=== PATIENT | female | born 1930 | race Caucasian/White ===

== ENCOUNTER 2016-07-04 21:41 | Emergency (ER) | payer MEDICARE ==
--- NOTE | 2016-07-04 22:17 | ERNOTE ---
GI Bleeding/Rectal Pain ER Date of Service: 07/04/16 - black stools Presenting Symptoms: other - Paeint reports use of peptobismuth and on iron therapy Immunizations: IMMUNIZATION HX Immunizations Up to Date Yes History of Influenza Vaccine Yes Hx Pneumococcal Vaccination Yes Allergies/Adverse Reactions: Allergies aspirin Adverse Reaction (Mild, Verified 02/13/16 09:08) Nausea can take coated asa meperidine HCl [From Demerol] Adverse Reaction (Mild, Verified 02/13/16 09:08) n/v Home Medications: HOME MEDICATIONS Gabapentin 600 mg PO Q4H 01/25/15 [Last Taken Unknown] traZODone HCL [Desyrel] 50 mg PO HS 01/25/15 [Last Taken Unknown] Calcium Carbonate/Vitamin D3 [Calcium 600 + D Tablet] 1 each PO DAILY 02/06/15 [ Last Taken Unknown] HYDROcodone/ACETAMINOPHEN [[place] 5-325 Tablet] 1 tab PO Q4H PRN 02/06/15 [Last Taken Unknown] Ibuprofen [Motrin] 400 mg PO Q6H PRN 02/06/15 [Last Taken Unknown] Multivit with Calcium,Iron,Min [Women's Daily Formula] 1 each PO DAILY 02/06/15 [Last Taken Unknown] [place]-3 Fatty Acids/Fish Oil [Fish Oil 1,000 mg Capsule] 1 each PO BID 02/06/15 [Last Taken Unknown] Omeprazole 40 mg PO DAILY 02/11/16 [Last Taken Unknown] Propylene Glycol/Peg 400 [Systane 0.3-0.4% Eye Drops] 1 drop OP BID 02/11/16 [ Last Taken Unknown] Zolpidem Tartrate [Ambien] 5 mg PO HS PRN 02/11/16 [Last Taken Unknown] Narrative: Patient presents with black stools x 3 days Date (Duration): 07/02/16 Time (Timing): 08:10 Timing: constant Quality/Severity: Present: mild Nausea/Vomiting: Present: blood Abdominal Pain: Present: none Rectal Bleeding: Present: other - black stool, no redness or clots noted, Prior Treament: Reports: recently seen, other - Under care of cancer specialist , has recent dx of left lung cancer Review of Systems - Review of Systems Constitutional: Present: no symptoms reported EYE: Present: no symptoms reported ENT: Present: no symptoms reported Respiratory: Present: no symptoms reported Cardiology: Present: no symptoms reported Gastrointestinal/Abdominal: Present: nausea - using peptobismuth for nausea , other - noted black stools since , same day she started the peptobismuth for nausea Genitourinary: Present: no symptoms reported Musculoskeletal: Present: no symptoms reported Skin: Present: no symptoms reported Neurological: Present: no symptoms reported Endocrine: Present: no symptoms reported Hematologic/Lymphatic: Present: no symptoms reported Psych: Present: no symptoms reported All Other Systems: All systems neg except as marked - Patient's Past Medical History Patient History - Medical: No pertinent hx Patient History - Cardiac/Respiratory: Bronchitis Patient History - Cancer: Lung, Thyroid Patient History - Surgical Procedures: Back Surgery, Cholecystectomy, T & A Patient History - Other: None - Social History Living Situations: alone Psych History: No pertinent hx Smoking Status: Former smoker Have you smoked in the past 12 months: Yes Do you dip or chew tobacco: No Alcohol Use: none - Immunizations Immunizations Up to Date: Yes Hx Pneumococcal Vaccination: Yes History of Influenza Vaccine: Yes Physical Exam - Physical Exam General Appearance: Present: wd/wn, alert Eye Exam: Normal inspection: bilateral, PERRL: bilateral, EOMI: bilateral Ears, Nose, Throat: Present: normal ENT inspection, normal except -, cerumen impaction - left ear canal partially impacted, tm still appears normal , normal pharynx Neck: Present: normal inspection, nontender Respiratory: Present: no respiratory distress, no accessory muscle use, chest nontender, lungs clear, decreased breath sounds - bilaterally at bases Cardiovascular/Chest: Present: regular rate, rhythm, no murmur Gastrointestinal/Abdominal: Present: normal bowel sounds, nontender, nondistended, soft, no organomegaly Rectal Exam: Present: nontender, normal rectal tone, other - stool color Back Exam: Present: normal inspection, normal range of motion, no CVA tenderness Extremity Exam: Present: normal inspection, normal range of motion, no edema Neurological Exam: Present: alert, oriented, normal mood/affect, no motor/ sensory deficits, other - patient is hard of hearing Skin Exam: Present: normal color, warm/dry Lymphatic Exam: Present: no adenopathy Pelvic Exam: Present: deferred ED Progress - Results and Orders Patient's Lab Results:: I have reviewed the patient's lab results. - Vital Signs Patient's Vital Signs:: I have reviewed the patient's vital signs. Vital Signs: Vital Signs 07/04/16 07/04/16 21:47 22:07 Temperature 36.7 C Pulse Rate 83 77 Respiratory 18 20 Rate Blood Pressure 122/75 168/78 O2 Sat by Pulse 96 94 Oximetry - Progress/Reassessment Chief Complaint: GI Bleed Progress:: Unchanged Plan - Plan Plan: discussed with patient stable for discharge and follow up with her PCP Departure Clinical Impression: GERD without esophagitis Nausea & vomiting Qualifiers: Vomiting type: unspecified Vomiting Intractability: non-intractable Qualified Code(s): R11.2 - Nausea with vomiting, unspecified - Departure Disposition: Home self-care Condition: Good Instructions: Indigestion, [id number] Additional Instructions: YOUR BLOOD WORK TODAY WAS STABLE NO BLOOD WAS DETECTED IN THE STOOL TODAY. CONTINUE TO MONITOR FOR ABDOMINAL PAIN AND OTHER SIGNS OF BLOOD LOSS, FOLLOW UP WITH YOUR DOCTOR Referrals: Tyrell Bryant MD [Primary Care Provider] -
--- OUTSIDE RECORDS SUMMARY | 2016-07-04 22:18 | XMS REPORT | Continuity of Care Document ---
:1930 Author Organization [facility] ([facility]) Address [address] [place] [address] Phone [phone] Care Team Providers Name Role Phone Tyrell Bryant Primary Care Provider [phone] Source Comments This disclosure is being made pursuant to the Care Everywhere program, applicable federal and state laws, and may not contain all informaitonavailable regarding this patient.[facility] ([facility]) Active Allergies and Adverse Reactions Allergen Noted Date Severity Reactions Comments Aspirin 07/28/2012 Nausea & Vomiting Meperidine 07/28/2012 Nausea & Vomiting Current Medications Prescription Sig. Disp. Refills Start Date End Date Status PROPYLENE GLYCOL/PEG 400 Instill onto the Active (SYSTANE OPHTH) eye as needed. CALCIUM PO Take by mouth 2 Active times daily. OMEPRAZOLE PO Take 20 mg by Active mouth daily. DOCOSAHEXANOIC ACID/EPA Take by mouth 2 Active (FISH OIL PO) times daily. VIT A/VIT C/VIT Take by mouth. Active E/ZINC/COPPER (OCUVITE PRESERVISION PO) MULTIVITS,CA,MINERALS/IRON Take by mouth. Active /FA (ONE-A-DAY WOMENS FORMULA PO) gabapentin 600 mg tablet take 1 tablet (600 1 12/04/2015 Active mg) by oral route 6 times per day traZODone 50 mg tablet Take 50 mg by 1 01/01/2016 Active mouth daily. zolpiDEM 5 mg tablet Take 5 mg by mouth 1 02/27/2016 Active at bedtime as needed. 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 Right Eye Left Eye Time To Recurrence: Time To Recurrence: Date VA (D cc) CMT Status Procedure VA (D cc) CMT Status Procedure Cmts 07/28/2012 20/30 20/60 +2 Avastin [id number] 11/24/2012 20/30-1+1 20/60-1 [id number] 03/17/2013 20/25-2 cc 20/80 cc Eylea [id number] 07/20/2013 20/30 cc 20/50 cc Lucentis [id number] Injections locally 05/11/2014 20/30 cc 20/60 +2 cc Lucentis [id number] 10/11/2014 20/30 cc 20/50 cc Eylea [id number] 04/11/2015 20/40-2 cc 20/60-2 cc Eylea [id number] 04/24/2016 20/25 +2 cc Eylea [id number] 20/30 -3 cc Eylea [id number] 05/21/2016 20/25 +3 cc 20/25 -1 cc Eylea [id number] Left eye only this visit Most Recent Encounters Date Type Specialty Providers Description 05/21/2016 Office Visit Ophthalmology - Chief Comp: Patient Specialty Reported Reason For Visit 05/21/2016 Office Visit Ophthalmology - Chris Timmons, Dx: Exudative age- related Specialty macular degeneration of both eyes with active choroidal neovascularization (Primary Dx) 04/24/2016 Office Visit Ophthalmology - Chief Comp: Patient Specialty Reported Reason For Visit 04/24/2016 Office Visit Ophthalmology - Chris Timmons, Dx: CNVM ( choroidal Specialty neovascular membrane), bilateral (Primary Dx) Social History Tobacco Use Types Packs/Day Years Used Date Current Every Day Smoker Cigarettes Smokeless Tobacco: Never Used Tobacco Cessation:Ready to Quit: No; Counseling Given: No Comments:Trying to quit Alcohol Use Drinks/Week oz/Week Comments No Plan of Care Health Maintenance Due Date Last Done Comments Hepatitis B Vaccine (1 of 3 - Primary Series) 1930 Tdap Vaccine 06/24/1943 Lipid Disorder Screening 1948 Td Vaccine 1948 Colonoscopy 1982 Zoster Vaccine 1992 Osteoporosis Screening (DXA Bone Density) 1997 Pneumococcal Vaccine (1 of 2 - PCV13) 1997 Influenza Vaccine: Seasonal (#1) 10/28/2015 Results from Last 3 Months EYE PROC - INTRAVITREAL INJECTION (05/21/2016 4:25 PM)Only the most recent of2 resultswithin the time period is included. Rosalva Valiente MD 05/21/20164:25 PM Retina Injection Procedure Note Surgical Service: Ophthalmology & Visual Sciences Date Performed: 05/21/2016 Performed by: Rosalva Rhoades MD Injection History: Injection and Visual Acuity Log Date Injection OD VA cc VA phcc Injection OS VA cc VA phcc 05/21/201620/25 +3Eylea 20/25 -1 04/24/2016 Eylea 20/25 +2Eylea 20/30 -3 NI 01/09/20162020 -2 20/20 -2 -3 20/25 -3 40-2 20/30 Eylea 20/60-2 20/30-2 NI Eylea 20/50 20/30 +1 05/11/ NI20/60 +2 20/40 12/07/ +1 NI Eylea 20/60 +1 20/30 -2 20/25 Eylea 20/50 20/40 +1 -2Eylea 20/80 NI -1+1 NI Avastin 20/60-1 NI NI Avastin 20/60 +2 NI Intravitreal injection Medication Injected: Intravitreal injection of 2mg Eylea left eye. Pre-procedure Diagnosis:Exudative age-related macular degeneration of both eyes with active choroidal neovascularization Preparation:5% Sterile PVP Antibiotic Drops:Gentamicin 0.3% administered both pre and post-procedure to injected eye/s Anesthesia: Topical Proparacaine 0.5% and Subconjunctival 2% Lidocaine Complications:None Post-injection Exam:VA > or=Hand Motions Procedure Comments: Patient was given endophthalmitis return precautions including pain and decreased vision and was instructed to return to clinic if any concerns. I was present for the entire procedure. Rosalva Rhoades MD Medical Retina Fellow Department of Ophthalmology and Visual Sciences [facility]
[2016-07-04 22:43] LABS: Hematocrit 37.1 % (37.0-47.0); Hemoglobin 12.7 gm/dL (12.5-16.0); Mean Cell Volume 86.5 fl (78-100); Mean Corpuscular Hemoglobin 29.6 pg (27-31); Mean Corpuscular Hgb Conc 34.2 g/dl (32-36); Mean Platelet Volume 8.9 fl (6.0-9.5); Neutrophil # 5.3 K/mm3 (1.3-6.0); Neutrophil % 53.4 % (42-75.0); Platelet Count 230 K/mm3 (150-450); Red Blood Count 4.29 M/mm3 (4.2-5.4); Red Cell Distribution Width 13.7 % (11.5-14.0); White Blood Count 9.9 K/mm3 (4.0-10.5)
[2016-07-04 22:48] LABS: Albumin * 3.2 gm/dl (3.4-5.0); Anion Gap 9.3 mmol/L (6.8-13.8); BUN/Creatinine Ratio 20.3 (9.0-21.6); Bilirubin, Total 0.2 mg/dL (0.0-1.1); Ca. Corrected For Albumin 9.1 mg/dL (8.4-10.2); Calcium * 8.8 mg/dL (7.9-10.9); Carbon Dioxide 29.2 mmol/L (24-32.6); Potassium 3.5 mmol/L (3.4-4.6); Total Protein 6.2 gm/dL (6.2-8.2)
[2016-07-04 23:54] VITALS: BP 117/86
== END 2016-07-04 23:55 | disposition home or self-care (01) ==
LOC: ER 21:41
DX: K21.9 Gastro-esophageal reflux disease without esophagitis (principal); R11.2 Nausea with vomiting, unspecified; Z72.0 Tobacco use; Z85.850 Personal history of malignant neoplasm of thyroid; Z85.118 Personal history of other malignant neoplasm of bronchus and lung

== ENCOUNTER 2016-08-04 07:22 | Day surgery (SDC) | payer MEDICARE ==
--- OUTSIDE RECORDS SUMMARY | 2016-08-04 07:26 | XMS REPORT | Continuity of Care Document ---
:1930 Author Organization [facility] ([facility]) Address [address] [place] [address] Phone [phone] Care Team Providers Name Role Phone Tyrell Bryant Primary Care Provider [phone] Source Comments This disclosure is being made pursuant to the Care Everywhere program, applicable federal and state laws, and may not contain all informaitonavailable regarding this patient.[facility] ([facility]) Active Allergies and Adverse Reactions Allergen Noted [...] Procedure Cmts 07/28/2012 20/30 20/60 +2 Avastin [id number] 11/24/2012 20/30-1+1 20/60-1 [id number] 03/17/2013 20/25-2 cc 20/80 cc Eylea [id number] 07/20/2013 20/30 cc 20/50 cc Lucentis [id number] Injections locally 05/11/2014 20/30 cc 20/60 +2 cc Lucentis [id number] 10/11/2014 20/30 cc 20/50 cc Eylea [id number] 04/11/2015 20/40-2 cc 20/60-2 cc Eylea [id number] 04/24/2016 20/25 +2 cc Eylea [id number] 20/30 -3 cc Eylea [id number] 05/21/2016 20/25 +3 cc 20/25 -1 cc Eylea [id number] Left eye only this visit Most Recent Encounters Date Type Specialty Providers Description 05/21/2016 Office Visit Ophthalmology - Chief Comp: Patient Specialty Reported Reason For Visit 05/21/2016 Office Visit Ophthalmology - Chris Timmons, Dx: Exudative age- related Specialty macular degeneration of both eyes with active choroidal neovascularization (Primary Dx) Social History Tobacco Use Types [...] EYE PROC - INTRAVITREAL INJECTION (05/21/2016 4:25 PM) Rosalva Valiente MD 05/21/20164:25 PM Retina Injection Procedure Note Surgical Service: Ophthalmology & Visual Sciences Date Performed: 05/21/2016 Performed by: Rosalva Rhoades MD Injection History: Injection and Visual Acuity Log Date [facility] OS [facility] cc VA phcc 05/21/201620/ +3Eylea 20/25 -1 04/24/2016 Eylea 20/25 +2Eylea 20/30 -3 NI /20 -2 20/20 -2 25 -3 20/25 -3 /40-2 /30 Eylea 20/60-2 /30-2 NI Eylea 20/50 20/30 +1 NI20/60 +2 20/40 +1 NI Eylea 20/60 +1 20/30 -2 [...] Fellow Department of Ophthalmology and Visual Sciences [facility]
--- NOTE | 2016-08-04 07:44 | OR ---
Anesthesia Pre Procedure Eval Date of Service: 08/04/16 Pre Procedure Evaluation: Last Vital Signs Temp 36 C L 08/04/16 07:30 Pulse 88 08/04/16 07:30 Resp 16 08/04/16 07:30 BP 120/74 08/04/16 07:30 Pulse Ox 96 08/04/16 07:30 Anesthesia Pre Procedure Evaluation DATE: 08/04/2016 TIME: INDICATIONS: Severe spinal stenosis, low back pain PAST MEDICAL HISTORY: Ms. Bautista has had a long history of back pain. She has been treated medically and surgically over the years. She has had 2 back surgeries most recently on was 4 years ago. Each of her surgeries didn't offer her relief however the pain has subsequently returned. The most relief she has received over the past several years was after epidural steroid injections. Her most recent injection was 6 months ago, and although she does not remember the details, she does relate that she received relief. She is unsure how long her current episode of pain has been going on but she relates low back into the right hip as being the primary issue. Additionally she has been having some pain in the left hip area however this is intermittent in nature. She does not use a cane or walker but this is primarily because of her arthritis and stated uncoordination of her left arm. She cannot relate exactly how long this episode of pain exacerbation has exist. EXAM: Heart regular; lungs clear ASSESSMENT OF MEDICAL STATUS: Appropriate candidate for epidural steroid injection PLANNED PROCEDURE: Epidural steroid injection lumbar Home Medications: HOME MEDICATIONS traZODone HCL [Desyrel] 50 mg PO HS 01/25/15 [Last Taken Unknown] Multivit with Calcium,Iron,Min [Women's Daily Formula] 1 each PO DAILY 02/06/15 [Last Taken Unknown] [place]-3 Fatty Acids/Fish Oil [Fish Oil 1,000 mg Capsule] 1 each PO BID 02/06/15 [Last Taken Unknown] Omeprazole 40 mg PO DAILY 02/11/16 [Last Taken Unknown] Propylene Glycol/Peg 400 [Systane 0.3-0.4% Eye Drops] 1 drop OP BID 02/11/16 [ Last Taken Unknown] Zolpidem Tartrate [Ambien] 5 mg PO HS PRN 02/11/16 [Last Taken Unknown] Aspirin [Aspirin Enteric Coated] 81 mg PO DAILY 08/03/16 [Last Taken Unknown] Calcium Carbonate/Vitamin D3 [Calcium 600 + Vit D 200 Tablet] 1 each PO DAILY [Last Taken Unknown] Gabapentin [Neurontin] 1,200 mg PO TID 08/03/16 [Last Taken Unknown] Polyethylene Glycol 3350 [Miralax] 17 gm PO DAILY 08/03/16 [Last Taken Unknown]
[2016-08-04] MEDS ORDERED: IOPAMIDOL 20 ML VIAL IJ ONE (08:05)
[2016-08-04] MEDS ORDERED: LIDOCAINE HCL/PF 5 ML VIAL IJ ONE (08:05)
[2016-08-04] MEDS ORDERED: DEXAMETHASONE SOD PHOSPHATE 10 MG/ML VIAL IJ ONE (08:05)
--- NOTE | 2016-08-04 08:19 | OR ---
Anesthesia Procedure Note - Anesthesia Procedure Note Date of Service: 08/04/16 Narrative: Vital Signs - Last Taken Temp 36 C L 08/04/16 07:30 Pulse 88 08/04/16 07:30 Resp 16 08/04/16 07:30 BP 120/74 08/04/16 07:30 Pulse Ox 96 08/04/16 07:30 08/04/16 08:14 ANESTHESIA PROCEDURE NOTE Date of Procedure: 08/04/2016 Time of procedure: 0800. Performed by: Mark Pereira CRNA, SIZING MACHINE OPERATOR, MSN It Operations Analyst: Tania Starks RN. Preprocedure diagnosis: Severe spinal stenosis bilateral hip pain. Post procedure diagnosis: Same. Procedure: Epidural Steroid Injection L1,2. Indications: Severe spinal stenosis, low back and hip pain bilaterally. Findings: See below. Details of the procedure: After the MRI report and films were reviewed, the patient was interviewed where risks and the procedure were explained. The patient was then brought to OR 4 and was placed in the prone position. The back was prepped with DuraPrep and draped in a sterile fashion. The high lumbar area was identified under fluoroscopy and the L1,2 space was localized with 1% lidocaine solution. The epidural space was identified using loss of resistance technique using a #20-gauge Touhy needle. 1 mL of Isovue was injected while the C-arm was positioned in the lateral orientation. The C-arm was then readjusted to an AP view and Isovue 200 1 milliliters was injected demonstrating a spread at the affected area. Dexamethasone 10mg and lidocaine 1 % 5 mL was injected, stylette was replaced and the epidural needle removed. A Band-Aid was then applied to the injection site, patient was placed in a supine position for 5 minutes then returned to ASU with good relief of pain, from a 2/ 10 to 0/10. (Normally, her pain is primarily elicited on ambulation.) EBL: None. Energy: 8.13 Seconds, 2.6 to mGy Fluids: N/A. Specimen: N/A. Post procedure condition: The patient tolerated the procedure well. No complications were noted. Thank you for this consultation. Mark Pereira CRNA, MSN, SIZING MACHINE OPERATOR
[2016-08-04 08:58] VITALS: BP 125/58
== END 2016-08-04 07:23 | disposition home or self-care (01) ==
LOC: AMB 07:22
PROVIDERS: ATTEND Internal Medicine
PROC: 3E0S3BZ Introduction of Anesthetic Agent into Epidural Space, Percutaneous Approach (ICD-10-PCS; 2016-08-04)
PROC: 3E0S33Z Introduction of Anti-inflammatory into Epidural Space, Percutaneous Approach (ICD-10-PCS; principal; 2016-08-04 08:00)
DX: M48.06 Spinal stenosis, lumbar region (principal); M25.552 Pain in left hip; M25.551 Pain in right hip; Z68.26 Body mass index [BMI] 26.0-26.9, adult